=== PATIENT | female | born 1980 | race Caucasian/White ===

== ENCOUNTER 2017-04-10 15:12 | Emergency (ER) | payer MEDICAID ==
[~2017-04-10] VITALS: Ht 165.1 cm; Wt 89.9 kg
[2017-04-10] MEDS ORDERED: KETOROLAC 30 MG/1 ML ONE (15:57)
[2017-04-10] MEDS ORDERED: KETOROLAC 30 MG/1 ML IM ONE (16:00)
[2017-04-10 16:03] VITALS: BP 124/86
== END 2017-04-10 16:49 | disposition home or self-care (01) ==
LOC: ED 16:11
DX: G89.29 Other chronic pain (principal); M25.551 Pain in right hip
CPT/HCPCS: 96372; 99283; J1885